=== PATIENT | female | born 1940 | race Caucasian/White ===

== ENCOUNTER 2018-12-24 06:32 | Day surgery (SDC) | payer MEDICARE, OTHER ==
[~2018-12-24] VITALS: Ht 152.4 cm; Wt 56.3 kg
[2018-12-24] VITALS (9 sets, daily range): BP systolic 122–144; BP diastolic 79–88
[2018-12-24] MEDS ORDERED: Cefazolin 2GM/100ML NS IVPB 100 ML IV ONE (06:50)
[2018-12-24] MEDS ORDERED: midazolam 2 mg/2 ml injection ONE ×3 (08:05→09:34)
[2018-12-24] MEDS ORDERED: diphenhydrAMINE 50 mg/ml inj ONE (08:05)
[2018-12-24] MEDS ORDERED: LIDOcaine 1%/PF 5ML 10 MG/ML VIAL SQ ONE (08:05)
[2018-12-24] MEDS ORDERED: fentaNYL/PF 50MCG/1 ML 2ML syringe IV PRN (08:05)
[2018-12-24] MEDS ORDERED: diphenhydrAMINE 50 mg/ml inj IV ONE (08:05)
[2018-12-24] MEDS ORDERED: fentaNYL/PF 50MCG/1 ML 2ML syringe ONE ×3 (08:05→09:29)
[2018-12-24] MEDS ORDERED: LIDOcaine 1%/PF 5ML 10 MG/ML VIAL ONE (08:05)
[2018-12-24] MEDS ORDERED: midazolam 2 mg/2 ml injection IV PRN (08:05)
[2018-12-24 08:07] LABS: BASOPHILS # (AUTO) 0.1 X10'3 (0-0.2); BASOPHILS % (AUTO) 1.2 % (0-1); EOSINOPHILS # (AUTO) 0.1 X10'3 (0-0.9); EOSINOPHILS % (AUTO) 1.2 % (0-6); HEMATOCRIT 36.6 % (35.0-45.0); HEMOGLOBIN 12.3 g/dl (12.0-16.0); LYMPHOCYTES # (AUTO) 2.6 X10'3 (1.1-4.8); LYMPHOCYTES % (AUTO) 23.9 % (21-51); MEAN CORPUSCULAR HEMOGLOBIN 30.4 PG (27.0-31.0); MEAN CORPUSCULAR HGB CONC 33.6 g/dL (33.0-36.5); MEAN CORPUSCULAR VOLUME 90.5 FL (78-98); MEAN PLATELET VOLUME 6.5 FL (7.4-10.4); MONOCYTES # (AUTO) 1.1 X10'3 (0-0.9); MONOCYTES % (AUTO) 10.2 % (2-12); NEUTROPHILS % (AUTO) 63.5 % (42-75); PLATELET COUNT 327 X10'3 (140-440); RED BLOOD COUNT 4.04 X10'6 (4.20-5.60); RED CELL DISTRIBUTION WIDTH 13.7 % (11.5-14.5)
[2018-12-24] MEDS ORDERED: BETA1TAB15 PO (08:07)
[2018-12-24] MEDS ORDERED: LEVO150T8 PO (08:09)
[2018-12-24] MEDS ORDERED: LORA1TAB PO (08:11)
[2018-12-24] MEDS ORDERED: BUDE0.5A11 IH (08:12)
[2018-12-24] MEDS ORDERED: QUET25TA PO (08:12)
[2018-12-24 08:14] LABS: ALBUMIN 3.3 G/DL (3.4-5.0); ANION GAP 5 (8-16); BLOOD UREA NITROGEN 6 MG/DL (7-18); BUN/CREATININE RATIO 10.5 (6.6-38.0); CALCIUM 9.7 MG/DL (8.5-10.1); CHLORIDE 103 MMOL/L (99-107); CREATININE 0.57 MG/DL (0.40-0.90); GLUCOSE 86 MG/DL (70-104); POTASSIUM 3.8 MMOL/L (3.5-5.1); SODIUM 136 MMOL/L (135-145); TOTAL CARBON DIOXIDE 27.9 MMOL/L (24-32); eGFR > 90 ML/MIN
[2018-12-24] MEDS ORDERED: METO-395 PO (08:14)
[2018-12-24] MEDS ORDERED: LYR75C PO (08:15)
[2018-12-24] MEDS ORDERED: META800T87 PO (08:17)
[2018-12-24] MEDS ORDERED: iohexol 300 MG/1 ML 50ml polymer ONE (08:18)
[2018-12-24] MEDS ORDERED: AMLO10TA PO (08:21)
[2018-12-24] MEDS ORDERED: PRAV40TA3 PO (08:22)
[2018-12-24] MEDS ORDERED: normal saline 1000ml 1,000 ML IV SCH (10:15)
[2018-12-24] MEDS ORDERED: HYDROcodone/acetaminophen 5mg/325mg tablet PO PRN (10:15)
[2018-12-24] MEDS ORDERED: mag hydrox/Alum hydrox/simeth 30ml oral suspension PO ONE (10:40)
== END 2018-12-24 13:00 | disposition home or self-care (01) ==
LOC: SSTAY O 06:32
PROVIDERS: ATTEND Radiology Vascular & Interventional Radiology
DX: S32.028A Other fracture of second lumbar vertebra, initial encounter for closed fracture (principal); F17.210 Nicotine dependence, cigarettes, uncomplicated; X58.XXXA Exposure to other specified factors, initial encounter; Y93.89 Activity, other specified; Y92.89 Other specified places as the place of occurrence of the external cause; Y99.8 Other external cause status; I10 Essential (primary) hypertension; Z86.73 Personal history of transient ischemic attack (TIA), and cerebral infarction without residual deficits; Z98.890 Other specified postprocedural states; Z88.6 Allergy status to analgesic agent; Z79.899 Other long term (current) drug therapy; Z79.82 Long term (current) use of aspirin
CPT/HCPCS: 22514; 36415; 80048; 85025; 85610; 99152; 99153; C1713; J0690; J1200; J2001; J2250; J3010; J7030; Q9967